=== PATIENT | female | born 2000 | race Caucasian/White ===

== ENCOUNTER → 2023-04-29 | Outpatient (CLI) | payer MEDICAID, SELFPAY ==
[2023-05-01 09:10] LABS: Chlamydia By Nucleic Acid AMP Negative (Negative); Gonococcus By Nucleic Acid AMP Negative (Negative)
[2023-05-04 18:25] LABS: HPV Reflexed? NOT INDICATED
== END | disposition home or self-care (01) ==
LOC: LABSPEC 11:19
PROVIDERS: Referring Provider Registered Nurse; Visit Provider Registered Nurse
DX: Z34.90 Encounter for supervision of normal pregnancy, unspecified, unspecified trimester (principal)
CPT/HCPCS: 87491; 87591; 88175; G0145

== ENCOUNTER → 2023-05-26 | Outpatient (CLI) | payer MEDICAID, SELFPAY ==
[2023-05-26 11:32] LABS: Absolute Lymphocyte Count 1.79 X10^3/uL (0.83-4.51); Absolute Neutrophil Count 10.8 X10^3/uL (2.0-7.7); Basophil# 0.07 X10^3/uL; Basophil% 0.5 % (0-1); Eosinophil# 0.31 X10^3/uL; Eosinophils% 2.2 % (0-5); Hemoglobin 14.3 g/dL (12.0-15.0); Lymphocyte # 1.79 X10^3/ul (0.83-4.51); Lymphocyte % 12.7 % (19-41); Mean Corpuscular Hgb 29.6 pg (27.0-32.0); Mean Platelet Vol. 8.7 fl (6.2-12.0); Monocyte# 1.07 X10^3/uL; Monocyte% 7.6 % (0-10); NRBC Flagged by Analyzer 0 % (0-5); Neutrophil # 10.78 X10^3/uL (2.7-7.7); Neutrophil % 76.6 % (47-70); Platelet Count 358 K/mm3 (150-450); RBC Distribution Width CV 12.3 % (11.6-14.6); RBC Distribution Width SD 38.8 fl (35.1-43.9); Red Blood Count 4.83 M/mm3 (4.2-5.4); White Blood Count 14.1 K/mm3 (4.4-11.0)
[2023-05-26 12:27] LABS: NATERA MAILED SPECIMEN
[2023-05-26 12:36] LABS: HIV - WCH Non-Reactive (Nonreactive); Hepatitis B Surface Antigen Non-Reactive (Nonreactive); Hepatitis C Antibody Non-Reactive (Nonreactive); Rubella IgG Reactive (Nonreactive); Syphilis Antibodies Non-reactive
== END | disposition home or self-care (01) ==
PROVIDERS: Referring Provider Registered Nurse; Visit Provider Registered Nurse
DX: Z34.81 Encounter for supervision of other normal pregnancy, first trimester (principal)
CPT/HCPCS: 36415; 85025; 86703; 86762; 86780; 86803; 86850; 86900; 86901; 87086; 87340

== ENCOUNTER → 2023-09-17 | Outpatient (CLI) | payer MEDICAID, SELFPAY ==
[2023-09-17 10:44] LABS: Absolute Lymphocyte Count 1.58 X10^3/uL (0.83-4.51); Absolute Neutrophil Count 11.5 X10^3/uL (2.0-7.7); Basophil# 0.02 X10^3/uL; Basophil% 0.1 % (0-1); Eosinophil# 0.11 X10^3/uL; Eosinophils% 0.8 % (0-5); Hematocrit 32.3 % (37-47); Hemoglobin 11.1 g/dL (12.0-15.0); Lymphocyte # 1.58 X10^3/ul (0.83-4.51); Lymphocyte % 11.1 % (19-41); Mean Corp Hgb Conc 34.4 g/dL (32-36); Mean Corpuscular Hgb 30.1 pg (27.0-32.0); Mean Corpuscular Volume 87.5 fL (81-99); Mean Platelet Vol. 8.9 fl (6.2-12.0); Monocyte# 0.86 X10^3/uL; NRBC Flagged by Analyzer 0 % (0-5); Neutrophil # 11.53 X10^3/uL (2.7-7.7); Neutrophil % 81.2 % (47-70); Platelet Count 302 K/mm3 (150-450); RBC Distribution Width CV 12.4 % (11.6-14.6); RBC Distribution Width SD 39.7 fl (35.1-43.9); Red Blood Count 3.69 M/mm3 (4.2-5.4); White Blood Count 14.2 K/mm3 (4.4-11.0)
[2023-09-17 11:01] LABS: Glucose Challenge Gest 1H 50g 119 mg/dL (70-140)
[2023-09-17 11:35] LABS: HIV - WCH Non-Reactive (Nonreactive); Syphilis Antibodies Non-reactive
== END | disposition home or self-care (01) ==
LOC: PAVLAB 10:13
PROVIDERS: Referring Provider Obstetrics & Gynecology; Visit Provider Obstetrics & Gynecology
DX: Z34.00 Encounter for supervision of normal first pregnancy, unspecified trimester (principal)
CPT/HCPCS: 36415; 82950; 85025; 86703; 86780

== ENCOUNTER → 2023-11-09 | Outpatient (CLI) | payer MEDICAID, SELFPAY ==
[2023-11-09 11:59] LABS: Protein, Urine (Random) 61.8 mg/dL (<11.9); Protein:Creat Ratio 722 mg/g CRE (0-200)
== END | disposition home or self-care (01) ==
PROVIDERS: Visit Provider Obstetrics & Gynecology
DX: Z34.02 Encounter for supervision of normal first pregnancy, second trimester (principal)
CPT/HCPCS: 82570; 84156

== ENCOUNTER → 2023-11-13 | Outpatient (CLI) | payer MEDICAID, SELFPAY ==
--- NOTE | 2023-11-13 11:39 | US_ITS ---
EXAM: US BIOPHYSICAL PROFILE WITHOUT NON-STRESS TESTING CLINICAL INDICATION: pre e TECHNIQUE: Real-time ultrasound of the maternal pelvis for biophysical profile evaluation with image documentation. COMPARISON: No relevant prior studies available. FINDINGS: BREATHING MOVEMENTS: Present. Score 2/2. GROSS BODY MOVEMENTS: Present. Score 2/2. TONE: Present. Score 2/2. QUALITATIVE AMNIOTIC FLUID VOLUME: Amniotic fluid index is 9.1 cm. FETUS: Single fetus. HEART RATE: cardiac rate is 152 bpm. PRESENTATION: Cephalic presentation. PLACENTA: Anterior placenta with grade 2 maturity change. US/Biophysical Prof W/O Non Stres IMPRESSION: No acute findings. Normal biophysical profile with score of 8/8. Electronically Signed: Deon Abdullahi MD at 16:54 EDT ,
== END | disposition home or self-care (01) ==
LOC: US 11:38
PROVIDERS: Referring Provider Obstetrics & Gynecology; Visit Provider Obstetrics & Gynecology
DX: Z34.02 Encounter for supervision of normal first pregnancy, second trimester (principal)
CPT/HCPCS: 76819

== ENCOUNTER → 2023-11-19 | Outpatient (CLI) | payer MEDICAID, SELFPAY ==
[2023-11-19 11:15] LABS: Absolute Lymphocyte Count 1.92 X10^3/uL (0.83-4.51); Basophil# 0.02 X10^3/uL; Basophil% 0.1 % (0-1); Eosinophil# 0.12 X10^3/uL; Eosinophils% 0.9 % (0-5); Hematocrit 32.4 % (37-47); Hemoglobin 10.5 g/dL (12.0-15.0); Lymphocyte # 1.92 X10^3/ul (0.83-4.51); Lymphocyte % 13.7 % (19-41); Mean Corp Hgb Conc 32.4 g/dL (32-36); Mean Corpuscular Hgb 26.7 pg (27.0-32.0); Mean Corpuscular Volume 82.4 fL (81-99); Mean Platelet Vol. 10.6 fl (6.2-12.0); Monocyte# 0.86 X10^3/uL; Monocyte% 6.1 % (0-10); NRBC Flagged by Analyzer 0 % (0-5); Neutrophil # 10.96 X10^3/uL (2.7-7.7); Neutrophil % 78.4 % (47-70); Platelet Count 281 K/mm3 (150-450); RBC Distribution Width SD 38.9 fl (35.1-43.9); Red Blood Count 3.93 M/mm3 (4.2-5.4)
[2023-11-19 11:30] LABS: ALB/GLOB Ratio 0.6 RATIO (0.9-2.4); AST(SGOT) 15 U/L (15-37); Alanine Aminotransfer ALT/SGPT 18 U/L (13-56); Albumin, Serum 2.5 g/dL (3.2-5.0); Alkaline Phosphatase 187 U/L (45-117); Anion Gap 7 (5-15); BUN 8 mg/dL (7-18); BUN/Creat Ratio 14.8 RATIO (10-20); Calcium,Total 8.6 mg/dL (8.5-10.1); Chloride 106 mmol/L (98-107); Creatinine, Serum 0.54 mg/dL (0.55-1.02); EST Glomerular Filtration Rate 150 mL/min (>60); Est Glom Filt Rate - Afr Amer 181 mL/min (>60); Globulin 4.3 g/dL (2.2-4.2); Glucose 88 mg/dL (74-106); Protein, Total 6.8 g/dL (6.4-8.2); Sodium Level 135 mmol/L (136-145)
[2023-11-19 13:46] LABS: Protein, Urine (Random) 657.4 mg/dL (<11.9); Protein:Creat Ratio 5259 mg/g CRE (0-200)
== END | disposition home or self-care (01) ==
PROVIDERS: Referring Provider Obstetrics & Gynecology; Visit Provider Obstetrics & Gynecology
DX: O12.13 Gestational proteinuria, third trimester (principal); Z3A.34 34 weeks gestation of pregnancy
CPT/HCPCS: 36415; 80053; 82570; 84156; 85025; 87086; 87088

== ENCOUNTER 2023-11-20 15:25 | Inpatient (IN) | payer MEDICAID, SELFPAY ==
[2023-11-20 15:35] VITALS: BMI 33.3
[2023-11-20] MEDS: Lactated Ringers 1,000 ML 50 ML IV (16:20)
[2023-11-20 16:27] LABS: Absolute Neutrophil Count 9.5 X10^3/uL (2.0-7.7); Basophil# 0.03 X10^3/uL; Basophil% 0.2 % (0-1); Eosinophil# 0.09 X10^3/uL; Eosinophils% 0.7 % (0-5); Hematocrit 32.7 % (37-47); Hemoglobin 10.8 g/dL (12.0-15.0); Lymphocyte % 14.6 % (19-41); Mean Corpuscular Hgb 27.1 pg (27.0-32.0); Mean Platelet Vol. 10.5 fl (6.2-12.0); Monocyte# 0.78 X10^3/uL; Monocyte% 6.3 % (0-10); NRBC Flagged by Analyzer 0 % (0-5); Neutrophil # 9.53 X10^3/uL (2.7-7.7); Neutrophil % 77.6 % (47-70); Platelet Count 296 K/mm3 (150-450); RBC Distribution Width SD 38.6 fl (35.1-43.9); Red Blood Count 3.99 M/mm3 (4.2-5.4); White Blood Count 12.3 K/mm3 (4.4-11.0)
[2023-11-20 16:32] VITALS: BP 139/87; PULSE 83; TEMP 36.6
[2023-11-20 16:57] LABS: AST(SGOT) 20 U/L (15-37); Alanine Aminotransfer ALT/SGPT 17 U/L (13-56); Creatinine, Serum 0.51 mg/dL (0.55-1.02); EST Glomerular Filtration Rate 161 mL/min (>60); Est Glom Filt Rate - Afr Amer 195 mL/min (>60); Estimated Creatinine Clearance 180.59 ml/min; Uric Acid 4.4 mg/dL (2.6-6.0)
[2023-11-20 17:03] LABS: Protein, Urine (Random) 1081.1 mg/dL (<11.9); Protein:Creat Ratio 5573 mg/g CRE (0-200)
[2023-11-20 17:21] LABS: Syphilis Antibodies Non-reactive
--- NOTE | 2023-11-20 17:54 | HP.PCM.OB_ITS ---
HPI - General General Date of Admission: 11/20/23 HPI Narrative JEANNIE DANIELS, is a 23 F who presents with preeclampsia with severe features- elevated bps and headaches at home, proteinuria over 5000mg. she denies any vb lof admits good fm no regular ctx. bps 150/100s at home. 2cm upon admission Maternal Data Information ROSA MARIA Calculator Estimated Delivery Date Method Current WG Current Estimate 12/19/23 Ultrasound #1 35w 6d Other Estimates 12/05/23 LMP (Certain) 37w 6d PFSH PFS Medical History (Updated 11/20/23 @ 17:[address] 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 current occupational exposures/hazards: No pets and animals: Yes pets and animals: other details: bearded alexon history of recent travel: No sexually active: Yes Smoking Status: Current every day smoker tobacco type: e-cigarettes Tobacco: How many years used: 7 Electronic Cigarette Use: with nicotine quit status: considering quitting alcohol intake: never substance use type: does not use diet: lactose free well-balanced diet: daily or most days caffeine: No eating out: 1-3 times/week during the past year weight has: remained stable what type of physical activity do you participate in: none maureen/denominational: None seatbelt use: always do you feel safe at home: Yes additional social history: BF Corey- Medical Record Retrieval Specialist History 1 Elective abortions Hx Para 0 Spontaneous abortions Hx # Term Pregnancies Ectopic pregnancies Hx # Pregnancies Multiple births # of living children Visit Details Expected Delivery Route/Plan Labor Preferences- CB/BF classes: declined labor support person: jody kaur- Olga Lidia labor intervention preferences: [] pain management options preferred: [] cut cord/dad catch: [] : [] PP control planned: [] discussed possible routes of delivery and associated risks: [] special requests: [] Plans Covid status: [] Flu vaccine: declined Tdap vaccine: Rhogam: [] LARC form signed: [] Problem list reviewed and updated with the most current plan of care details and appropriate orders placed. Relevant counseling for the gestational age provided. Continue routine care and follow up unless otherwise noted in visit notes/problem list details OB Flowsheet Initial Weight: Not Recorded Date -?-?-?-?-?-?-?-?-?-?-?-?- EGA Weight BP Urine Prot -?-?-?-?-?-?-?-?-?-?-?-?- Glucose FHR FuHt Pres Dilation -?-?-?-?-?-?-?-?-?-?-?-?- Effaced St Visit Note 04/29/23 -?-?-?-?-?-?-?-?-?-?-?-?- 6w 4d 118 lb 6 oz 125/74 -?-?-?-?-?-?-?-?-?-?-?-?- 133 -?-?-?-?-?-?-?-?-?-?-?-?- CRL 8mm. LMP not con with ROSA MARIA. LCCRL 8mm. LMP not con with ROSA MARIA. changed to 12/19/2023. accepts carrier and genetic screening. tobacco cessation encouraged. 05/26/23 -?-?-?-?-?-?-?-?-?-?-?-?- 10w 3d 120 lb 4 oz 114/78 -?-?-?-?-?-?-?-?-?-?-?-?- -?-?-?-?-?-?-?-?-?-?-?-?- kw- no vb/augie desouza. [employer] helping with N/V. FHT visualized on handheld US today. no concerns 06/24/23 -?-?-?-?-?-?-?-?-?-?-?-?- 14w 4d 124 lb 4 oz 110/62 Nega tive -?--?-?-?-?-?-?-?-?-?-?-?- Negative 145 -?-?-?-?-?-?-?-?-?-?-?-?- MH-NO VB. doing well. Reviewed genetic screen for positive short allele Fragile X. MFM US ordered 07/24/23 -?-?-?-?-?-?-?-?-?-?-?-?- 18w 6d 141 lb 2 oz 127/80 -?-?-?-?-?-?-?-?-?-?-?-?- 155 -?-?-?-?-?-?-?-?-?-?-?-?- KW- anatomy us y esterday. repeat US at 28 weeks for low placenta. no vb/cramping. good fm. 08/20/23 -?-?-?-?-?-?-?-?-?-?-?-?- 22w 5d 153 lb 111/72 -?-?-?-?-?-?-?-?-?-?-?-?- 145 -?-?-?-?-?-?-?-?-?-?-?-?- SM- no vb lof go od fm no regular ctx discussed pain in feet 09/17/23 -?-?-?-?-?-?-?-?-?-?-?-?- 26w 5d 166 lb 114/73 Negative -?-?-?-?-?-?-?-?-?-?-?-?- Negative 150 27 -?-?-?-?-?-?-?-?-?-?-?-?- SM- no vb lof go od fm no regular ctx nl cbc gct 10/15/23 -?-?-?-?-?-?-?-?-?-?-?-?- 30w 5d 173 lb 120/79 Negative -?-?-?-?-?-?-?-?-?-?-?-?- Negative 140 32 -?-?-?-?-?-?-?-?-?-?-?-?- KW- no vb/lof/ct x. good fm. KW- no vb/lof/ctx. good fm. Tdap and LARC today 10/26/23 -?-?-?-?-?-?-?-?-?-?-?-?- 32w 2d 179 lb 2 oz 120/81 -?-?-?-?-?-?-?-?-?-?-?-?- 145 33 -?-?-?-?-?-?-?-?-?-?-?-?- KW- no vb/lof/ct x. good fm. FMLA papers to triage. 11/09/23 -?-?-?-?-?-?-?-?-?-?-?-?- 34w 2d 183 lb 4 oz 120/86 1+ -?-?-?-?-?-?-?-?-?-?-?-?- Negative 145 34 1 -?-?-?-?-?-?-?-?-?-?-?-?- SM- no vb lof go od fm no regular ctx but co some rpessure and discharge- 11/19/23 -?-?-?-?-?-?-?-?-?-?-?-?- 35w 5d 191 lb 138/84 3+ -?-?-?-?-?-?-?-?-?-?-?-?- Negative 130 -?-?-?-?-?-?-?-?-?-?-?-?- SM- reviewed pre cautions no vb lof irregular ctx NST FHR Rate Baby A Baseline: 140 Variability:: Moderate Accelerations:: 15 x 15 Decelerations:: None NST Reactive:: Yes FHR Category:: Category I Uterine Activity:: q3-5 ROS Constitutional Constitutional: Reports systems reviewed and no addt'l complaints, except as documented ENT HEENT: Reports systems reviewed and no addt'l complaints, except as documented Cardiovascular Cardiovascular: Reports systems reviewed and no addt'l complaints, except as documented Respiratory/Chest Respiratory/Chest: Reports systems reviewed and no addt'l complaints, except as documented Gastrointestinal Gastrointestinal: Reports systems reviewed and no addt'l complaints, except as documented and nausea; Denies abdominal pain Genitourinary Genitourinary: Reports systems reviewed and no addt'l complaints, except as documented, contractions Details: present and frequency (regular ) and movement Details: present Musculoskeletal Musculoskeletal: Reports systems reviewed and no addt'l complaints, except as documented Integumentary Integumentary: Reports as per HPI Neurologic Neurologic: Reports systems reviewed and no addt'l complaints, except as documented Endocrine Endocrinology: Reports systems reviewed and no addt'l complaints, except as documented Vital Signs Vital Signs Vital Signs: 11/20/23 16:32 11/20/23 16:32 11/20/23 16:32 Temperature Temperature Source Temporal Pulse Rate 83 Blood Pressure 139/87 H BP Systolic 139 BP Diastolic 87 11/20/23 16:32 Temperature 97.9 F Temperature Source Pulse Rate Blood Pressure BP Systolic BP Diastolic Weight Weight: 188 lb 0.869 oz Body Mass Index (BMI) 33.3 Physical Exam Const alert, oriented x3 and healthy appearing Constitutional Narrative: uncomfortable with contractions HEENT normocephalic and moist oral mucous membranes Head and Scalp: atraumatic Neck full ROM, no lymphadenopathy, supple and thyroid normal General: trachea midline Thyroid: thyroid normal Lymph Lymphatic: no lymphadenopathy noted Chest inspection of chest normal Resp normal respiratory effort Cardio regular rate GI normal to inspection, nondistended, normoactive bowel sounds, soft to palpation and non-tender Inspection: gravid external exam normal Bimanual Exam - Vag & Uterus: uterus non-tender Manual OB Exam: estimated gestational size appropriate, presentation cephalic, dilated, effaced and station Extremity normal to inspection General Extremity: Negative for edema Skin no rashes or lesions noted Neuro deep tendon reflexes 2+ bilaterally Motor Exam: strength 5/5 throughout and clonus absent Psych mental status grossly normal Labs Labs Labs: Blood Type A POSITIVE Antibody Screen NEGATIVE Hct 32.7 % (37-47) L Hgb 10.8 g/dL (12.0-15.0) L Syphilis Total Ab Non-reactive Rubella IgG Antibody Reactive (Nonreactive) Hep Bs Antigen Non-Reactive (Nonreactive) Hepatitis C Antibody Non-Reactive (Nonreactive) Chlamydia DNA ([facility]) Negative (Negative) N.gonorrhoeae DNA ([facility]) Negative (Negative) HIV 1&2 Antibody Non-Reactive (Nonreactive) Glucose 1 Hr 50 gm 119 mg/dL (70-140) Group B Strep DNA Negative (Negative) Assessment & Plan (1) Preeclampsia, severe: (2) Proteinuria affecting : COMMENT: home bp monitoring, weekly nsts and pree labs, growth US ordered, reviewed pree precautions. urine culture ordered also. (3) Acid reflux: (4) Abnormal chromosomal and genetic finding on screening mother: COMMENT: intermediate allele size for fragile X which does not affect current or patient but could expand to affect future generations. (5) Lactose intolerance: (6) Vaping nicotine dependence, non-tobacco product: COMMENT: considering quitting, has decreased frequency of use (7) Supervision of normal first : QUALIFIERS: Trimester: second trimester Qualified Code(s): Z34.02 - Encounter for supervision of normal first , second trimester COMMENT: [id number]. ROSA MARIA 12/19/23 girl Ny Nicole (8) : QUALIFIERS: Weeks of gestation: 34 weeks Qualified Code(s): Z3A.34 - 34 weeks gestation of COMMENT: NIPT low risk, carrier testing reviewed. ntd screen declined. anatomy reviewed.
[2023-11-20] MEDS: Acetaminophen 500 MG Tablet PO (18:32)
[2023-11-20] MEDS: Betamethasone/Betamethasone 30 MG/5 ML Vial 12 MG IM (18:33)
[2023-11-20 19:00] LABS: Amphetamine Urine VISTA NEGATIVE (<1000 ng/mL); Barbiturate Urine VISTA NEGATIVE (< 200 ng/mL); Benzodiazepine Urine VISTA NEGATIVE (< 200 ng/mL); Cocaine Urine VISTA NEGATIVE (< 300 ng/mL); Ecstacy Urine VISTA NEGATIVE (< 500 ng/mL); Methadone Urine VISTA NEGATIVE (< 300 ng/mL); PCP Urine VISTA NEGATIVE (< 25 ng/mL); THC Urine VISTA POSITIVE (< 50 ng/mL); Vista UDS pH Range 6
[2023-11-20] MEDS: miSOPROStol 25 MCG TABLET VAGINAL ×2 (19:13→23:21)
[2023-11-20 19:17] VITALS: BP 141/87; PULSE 78
[2023-11-20 19:18] VITALS: RESP 16; TEMP 36.9
[2023-11-20 19:34] LABS: Group B Strep DNA By PCR Negative (Negative); Internal Control PASS; Probe Check PASS; Specimen Processing Control PASS
[2023-11-20 20:00] VITALS: PULSE 88; O2SAT 97
[2023-11-20 23:14] VITALS: BP 136/87; PULSE 85
[2023-11-20 23:15] VITALS: PULSE 85; RESP 16; TEMP 36.6; O2SAT 98
[2023-11-21] VITALS (70 sets, daily range): BP systolic 119–166; BP diastolic 62–119; PULSE 78–165; RESP 16; TEMP 36.2–37.1; O2SAT 94–100
[2023-11-21] MEDS: Lactated Ringers 1,000 ML 999 ML IV (02:45)
[2023-11-21] MEDS: fentaNYL-bupivacaine (epidural) 100 ML BAG EPIDURAL (03:45)
[2023-11-21 06:17] LABS: Hematocrit 32.7 % (37-47); Hemoglobin 10.7 g/dL (12.0-15.0); Mean Corp Hgb Conc 32.7 g/dL (32-36); Mean Corpuscular Hgb 26.9 pg (27.0-32.0); Mean Corpuscular Volume 82.2 fL (81-99); Mean Platelet Vol. 10.2 fl (6.2-12.0); Platelet Count 313 K/mm3 (150-450); RBC Distribution Width CV 12.9 % (11.6-14.6); RBC Distribution Width SD 38.2 fl (35.1-43.9); Red Blood Count 3.98 M/mm3 (4.2-5.4)
[2023-11-21 06:43] LABS: ALB/GLOB Ratio 0.6 RATIO (0.9-2.4); AST(SGOT) 16 U/L (15-37); Alanine Aminotransfer ALT/SGPT 17 U/L (13-56); Albumin, Serum 2.5 g/dL (3.2-5.0); Alkaline Phosphatase 189 U/L (45-117); Anion Gap 9 (5-15); BUN 6 mg/dL (7-18); BUN/Creat Ratio 10.3 RATIO (10-20); Calcium,Total 9.2 mg/dL (8.5-10.1); Chloride 105 mmol/L (98-107); Creatinine, Serum 0.58 mg/dL (0.55-1.02); EST Glomerular Filtration Rate 138 mL/min (>60); Est Glom Filt Rate - Afr Amer 166 mL/min (>60); Globulin 4.2 g/dL (2.2-4.2); Glucose 113 mg/dL (74-106); Potassium 3.8 mmol/L (3.5-5.1); Protein, Total 6.7 g/dL (6.4-8.2); Sodium Level 134 mmol/L (136-145)
[2023-11-21] MEDS: Lactated Ringers 1,000 ML 200 ML IV (06:43)
--- NOTE | 2023-11-21 06:45 | PCM.PN.BLA ---
Progress Note arom CLEAR fliud, had some increased bleeding overnight but making cervical change now 4-5 80 -2.
[2023-11-21] MEDS: LACTATED RINGERS 500 ML 999 ML IV (07:28)
--- NOTE | 2023-11-21 08:44 | EX.PCM.OBRPT ---
Assessment & Plan (1) Preeclampsia, severe: COMMENT: admit and IOL. monitor bps to start magnesium. monitor serial labs (2) Proteinuria affecting : COMMENT: home bp monitoring, weekly nsts and pree labs, growth US ordered, reviewed pree precautions. urine culture ordered also. (3) Abnormal chromosomal and genetic finding on screening mother: COMMENT: intermediate allele size for fragile X which does not affect current or patient but could expand to affect future generations. (4) Acid reflux: (5) Lactose intolerance: (6) Vaping nicotine dependence, non-tobacco product: COMMENT: considering quitting, has decreased frequency of use (7) Supervision of normal first : QUALIFIERS: Trimester: second trimester Qualified Code(s): Z34.02 - Encounter for supervision of normal first , second trimester COMMENT: [id number]. ROSA MARIA 12/19/23 girl Ny Nicole (8) : QUALIFIERS: Weeks of gestation: 34 weeks Qualified Code(s): Z3A.34 - 34 weeks gestation of COMMENT: NIPT low risk, carrier testing reviewed. ntd screen declined. anatomy reviewed. (9) Vaginal delivery: COMMENT: SM IOL severe preeclampsia 36 girl Alejandra (10) Placental abruption in third trimester: COMMENT: marginal at delivery recommend apl panel at visit Maternal Data Information ROSA MARIA Calculator Estimated Delivery Date Method Current WG Current Estimate 12/19/23 Ultrasound #1 36w 0d Other Estimates 12/05/23 LMP (Certain) 38w 0d Vaginal Delivery Operative Information Pre-Operative Diagnosis: see a/p diagnoses Post-Operative Diagnosis: same Surgery / Procedure Performed: Spontaneous Vaginal Delivery Type of Anesthesia: Epidural Special Medications: none Estimated Blood Loss: 200 Fluids Replaced: crystalloid Findings Description of Procedure: Patient began pushing and delivered the head in the SHAMIKA presentation. The head was delivered atraumatically nc x 1 delivered through. The anterior and posterior shoulders delivered without complication followed by the rest of the and the infant was placed on the maternal abdomen. Delayed cord clamping was employed for approximately 60 seconds. Cord was clamped and cut and gentle traction was applied to the cord and the placenta delivered spontaneously immediately following it was noted to be intact with three-vessel cord. The perineum and vagina were inspected and noted to have no laceration. EBL was 500 cc with mild atony treated with massage and cytotec and hemabate, marginal placental abruption seen at edge of placenta and port wine fluid seen at delivery of baby.. Patient and tolerated delivery well. Amniotic Fluid Description: Bloody Placental Delivery Description: Spontaneous Placenta Disposition: [facility] Cord Vessel Description: 3 Vessels Cord Entanglement: Around neck x 1, loose Delayed Cord Clamping: Yes Post Vaginal Delivery Medications Given After Delivery: - (Pitocin) Episiotomy Description: None Complication Complications: None Procedures Urinary/Genital [id number]: [id number] Vaginal Delivery+PP Care([facility])
--- NOTE | 2023-11-21 08:47 | DCINST_ITS ---
Discharge Instructions Diet Discharge Diet: No restrictions Activity Discharge Activity: Return to Normal Activity, May Not Drive (while taking narcotic pain medications.) and May Shower May resume sexual activity in: 4-6 weeks Dressing / Incision Call your doctor if your incision/area has: Continuous Slow Oozing, Sudden Increased Bleeding, Increased Pain/ Swelling, Increased Redness and Foul Smelling Discharge Follow Up Care Please Follow Up With: Arelis Hitchcock MD When: Call [phone] to make an appointment with your doctor in 6 weeks. If you had elevated blood pressure or 4th degree laceration, you will need to be seen in 2 weeks. Test Results: Test results from this visit will be discussed in further detail at your follow- up appointment, if applicable. Discharge Plan Admission Admit Date/Time: 11/20/23 15:25 Attending Provider: Arelis Hitchcock Primary Care Provider: Care Physician,Mildred Primary Discharge Orders/Prescriptions Prescriptions: No Action PNV-DHA 27 mg iron-1 mg -300 mg capsule 1 cap PO DAILY Referrals / Follow Up: Care Physician,No Primary [Primary Care Provider] - Disposition Disposition (needs filled in before D/C Order can be placed): Home, Self Care
[2023-11-21] MEDS: Oxytocin 15 Units/NS 250ml 15 UNITS/250 ML IV.SOLN 334 UNITS IV (09:15)
[2023-11-21] MEDS: miSOPROStol 200 MCG Tablet 1000 MCG RC (09:16)
[2023-11-21] MEDS: Carboprost Tromethamine 250 MCG/ML Ampul IM (09:17)
[2023-11-21] MEDS: Ondansetron 4 MG/2 ML Vial IV (10:01)
[2023-11-21] MEDS: Oxytocin 15 Units/NS 250ml 15 UNITS/250 ML IV.SOLN 83 UNITS IV (10:27)
[2023-11-21] MEDS: Loperamide 2 MG Capsule PO (11:50)
[2023-11-21] MEDS: Lactated Ringers 500 ML 999 ML IV (11:55)
[2023-11-21 12:12] LABS: Absolute Lymphocyte Count 2.27 X10^3/uL (0.83-4.51); Basophil# 0.08 X10^3/uL; Basophil% 0.2 % (0-1); Eosinophil# 0.32 X10^3/uL; Eosinophils% 0.9 % (0-5); Hematocrit 30.7 % (37-47); Hemoglobin 10.2 g/dL (12.0-15.0); Lymphocyte # 2.27 X10^3/ul (0.83-4.51); Lymphocyte % 6.2 % (19-41); Mean Corp Hgb Conc 33.2 g/dL (32-36); Mean Corpuscular Hgb 27.3 pg (27.0-32.0); Mean Corpuscular Volume 82.3 fL (81-99); Mean Platelet Vol. 10.7 fl (6.2-12.0); Monocyte# 2.38 X10^3/uL; Monocyte% 6.5 % (0-10); NRBC Flagged by Analyzer 0 % (0-5); Neutrophil % 84.9 % (47-70); POSITIVE COUNT YES; POSITIVE DIFFERENTIAL YES; Platelet Count 413 K/mm3 (150-450); RBC Distribution Width CV 13.2 % (11.6-14.6); Red Blood Count 3.73 M/mm3 (4.2-5.4)
[2023-11-21 12:34] LABS: White Blood Count 36.5 K/mm3 (4.4-11.0)
[2023-11-21 12:35] LABS: Differential Indicated SCAN CRITERIA MET
[2023-11-21 12:55] LABS: Differential Comment SCANNED
[2023-11-21] MEDS: Gentamicin IV 260 MG in Dextrose 5%-Water (50mL Bag) 50 ML 100 MG IVPB (13:09)
[2023-11-21] MEDS: Clindamycin 900 MG/50 ML BAG 75 MG IV ×2 (14:30→22:29)
--- NOTE | 2023-11-21 15:39 | CASEMGMT ---
Social Work Assessment Labor and Delivery Unit Patient Address: [address] [place] [address] , [address], [place] [address] Phone number: [phone] Date of Referral: 11/21/2023 Time of Referral: 1024 Referred By: Dr. Arelis Hitchcock Date of Intervention: 11/21/2023 Time of Intervention: Approximately 1330 Reason for Referral: Resources History obtained from: Medical records and mother of baby (MOB) Florence Li; father of baby (FOB) Corey Bruno and MOB's mother Olga Lidia Portillo present for part of conversation Household composition: MOB and FOB live together in an apartment. Denies any safety concerns or general concerns about the environment. Patient's parent/guardian status: JESSICA is a 23-year-old single female involved with the FOB Corey Bruno for the last 1 year. is the first child for both parents. Baby girl named Ny Bruno, born 11/21/[birth year]23. During private conversation with MOB, MOB denied any type of domestic violence or safety concerns in this relationship. Medical History: JESSICA is 1, para 0 now 1 after delivering Ny. care good starting at 6 weeks gestation. MOB developed preeclampsia and per medical record had a marginal placental abruption. Infant delivered at 36 weeks gestation weighing 2875 g. Apgars 8 and 9 at 1 and 5 minutes of life respectively. Educational Status: MOB denies any learning or comprehension issues. Financial Status: JESSICA Works at [employer] in the FOB also works at [employer] of [employer]. FOB is a diesel pile hammer operator. No reported concerns. JESSICA is on [facility] community plan Medicaid. Supplies: MOB and FOB reported to have the necessary supplies for the baby including a car seat, safe sleep space in the form of bassinet and a pack and play. No concerns reported about diapers or clothing. MOB plans to provide breastmilk as well as to bottlefeed. Plans to utilize WIC for formula. Childcare/Caregiver(s): MOB and FOB will be primary caregivers. There is a daycare already lined up and the MOB's mother will also be in assist as needed. Transportation: MOB and FOB reported to have reliable transportation. Programs/Agencies Involved: Job and family services for medical. JESSICA reports she has looked into WIC and plans to apply for this for formula. No other patient seen our program involvement reported. Declined referrals to the [facility] nurse visit program and help me grow. Children Services/Legal Issues: No reported history Behavioral Health Issues: Mental Health History: MOB denies any type of mental health history, no depression, no anxiety or exacerbation of such during . Denies any history of suicidal ideations, plans or intent or attempt. Substance Use History: MOB admits to history of marijuana usage. Medical record indicates usage over the last couple of years and last use was within the last 2 weeks. MOB reports to this verse writer that growing up the MOB was a tomboy and did things such as 4 wheeling. MOB reports had to stop some of these activities due to , and then might started to feel more pain. MOB reports would use marijuana at nighttime before bed, to help the MOB sleep. MOB denies any alcohol use in denies any other substance use history. Medical record does indicate MOB does smoke tobacco. Family History: MOB's mother denies any history of depression for self or any other female in the family. No other mental health history reported. MOB did disclose that FOB will sometimes use marijuana. Drug Screens: Maternal drug screen positive for marijuana on 11/20/2023. Infant's urine and meconium testing pending. RN reports did urinate at delivery. Family/Social Stressors: No reported family or social stressors. MOB reports that the main concern she had was that the infant would be taken away due to marijuana usage. Support Systems: MOB and FOB reported to have a good support system between themselves and family. MOB's mother is close by to help when needed. FOB will be taking 2 weeks off of work to help with transition home. MOB's mother has the option of taking up to 5 weeks off of work as needed to help Depression/Shaken Baby/Safe Sleeping: Information provided on safe sleeping, shaken baby, and mood and anxiety disorders. ASSESSMENT: Met with MOB, FOB and MOB's mom in room, introducing to self and social work role. Conducted assessment with others present, though did ask visitors to leave to allow for depression screening. Family left willingly and without issue. This verse writer did verbally review [place] depression screening questions and MOB was negative on all answers. Denies any type of chronic or past concerns with depression or anxiety. This verse writer also addressed privately MOB's history of THC use. MOB reports that both the FOB and MOB's mom is aware of this history. MOB answered questions and reports has been worried about losing custody of the baby due to marijuana. Updated MOB that substance use in does warrant referral to children services, but that there is a chance children services may not even follow-up. MOB expressed understanding and appreciation for this update. MOB reports to be happy to be a mother, that this has been her desire for a long time to parent a baby. MOB reports to feel she is in a good relationship with FOB, who MOB feels is supportive. MOB reports that she has been considering the appropriate method to feed the baby, as he is aware that using any type of substance and then providing breastmilk to the baby is not recommended. MOB accepted resources on perineal mood and anxiety disorders, safe sleeping, shaken baby, healthy girl and nurse visit program. General resource list for [facility] also provided. MOB declined any actual referrals to help make her out for the nurse visit program. MOB reports intent to speak with [employer] should symptoms of mood and anxiety disorder surface. Safe Plan of Care for infant related to substance use: MOB reports that if there is any future marijuana use by herself or the FOB all use would be outside. Marijuana would be kept in a locked box outside of the house. Parents would take turns using the substance. This verse writer encouraged MOB that there should always be once sober. To be caring for the baby. MOB expressed understanding and intent to adhere to this recommendation. MOB is also aware of recommendations not to provide breastmilk after using. MOB does report plan to speak with department further on this topic. PLAN: MOB and infant will discharge home when ready. General resource packet of social service agencies for [facility] provided, including parent support and counseling. Information on safe sleeping, shaken baby prevention, mood and anxiety disorders, help me grow, and nurse visit program also provided to MOB. Social work remains involved should any additional concerns arise during admission. -SILVIA Lopez, TUAN *This note was generated with Eximiaation software. It may contain incorrect words, spelling, and punctuation that were not noted in review of the chart prior to signing*
[2023-11-22 04:50] VITALS: BP 136/88; PULSE 94; RESP 16; TEMP 36.1; O2SAT 99
[2023-11-22] MEDS: Clindamycin 900 MG/50 ML BAG 75 MG IV (06:34)
[2023-11-22 06:45] LABS: ALB/GLOB Ratio 0.6 RATIO (0.9-2.4); AST(SGOT) 21 U/L (15-37); Alanine Aminotransfer ALT/SGPT 22 U/L (13-56); Albumin, Serum 2.5 g/dL (3.2-5.0); Alkaline Phosphatase 140 U/L (45-117); Anion Gap 7 (5-15); BUN 7 mg/dL (7-18); BUN/Creat Ratio 11.3 RATIO (10-20); Calcium,Total 8.9 mg/dL (8.5-10.1); Chloride 106 mmol/L (98-107); Creatinine, Serum 0.62 mg/dL (0.55-1.02); EST Glomerular Filtration Rate 128 mL/min (>60); Est Glom Filt Rate - Afr Amer 155 mL/min (>60); Estimated Creatinine Clearance 148.55 ml/min; Globulin 3.9 g/dL (2.2-4.2); Glucose 91 mg/dL (74-106); Potassium 3.8 mmol/L (3.5-5.1); Protein, Total 6.4 g/dL (6.4-8.2); Sodium Level 137 mmol/L (136-145)
[2023-11-22 08:00] VITALS: BP 132/92; PULSE 96; RESP 17; TEMP 36.1
--- NOTE | 2023-11-22 08:28 | PN.OBGYN_ITS ---
Subjective Subjective Patient doing well without complaints. Tolerating PO. Ambulating and voiding without difficulty. feeding well. Denies chest pain, shortness of breath, calf pain/swelling, fevers, chills, lightheadedness. Objective Data Objective Data Vital Signs: Vital Signs Temp Pulse Resp BP Pulse Ox O2 Del Method 97.0 F L 94 16 136/88 H 99 Room Air 11/22/23 04:50 11/22/23 04:50 11/22/23 04:50 11/22/23 04:50 11/22/23 04:50 11/22/23 04:50 Oxygen Delivery Method Room Air Weight: 188 lb 0.869 oz Body Mass Index (BMI) 33.3 Intake & Output: Intake and Output for Last 24 Hours 11/20/23 11/21/23 11/22/23 23:59 23:59 23:59 Intake Total 4129.50 / 4129.50 50 / 50 Output Total 2200 / 2200 Balance 1929.50 / 1929.50 50 / 50 Lab / Micro Data 11/21/23 11:50 11/22/23 06:05 Labs: Laboratory Results - last 24 hr 11/21/23 11:50: WBC 36.5 H*, RBC 3.73 L, Hgb 10.2 L, Hct 30.7 L, MCV 82.3, MCH 27.3, MCHC 33.2, RDW Std Deviation 39.0, RDW Coeff of Justin 13.2, Plt Count 413, MPV 10.7, Immature Gran % (Auto) 1.300 H, Neut % (Auto) 84.9 H, Lymph % (Auto) 6.2 L, [place] % (Auto) 6.5, Eos % (Auto) 0.9, Baso % (Auto) 0.2, Absolute Neuts (auto) 31.0 H, Absolute Lymphs (auto) 2.27, Nucleated RBC % 0, Differential Comment SCANNED, Diff Path Review October11/22/23 06:05: Sodium 137, Potassium 3.8, Chloride 106, Carbon Dioxide 24.0, Anion Gap 7, BUN 7, Creatinine 0.62, Estim Creat Clear Calc 148.55, Est GFR (MDRD) Af Amer 155, Est GFR (MDRD) Non-Af 128, BUN/Creatinine Ratio 11.3, Glucose 91, Calcium 8.9, Total Bilirubin 0.20, AST 21, ALT 22, Alkaline Phosphatase 140 H, Total Protein 6.4, Albumin 2.5 L, Globulin 3.9, A lbumin/Globulin Ratio 0.6 L ROS Constitutional Constitutional: Reports systems reviewed and no addt'l complaints, except as documented Cardiovascular Cardiovascular: Reports systems reviewed and no addt'l complaints, except as documented Respiratory/Chest Respiratory/Chest: Reports systems reviewed and no addt'l complaints, except as documented Gastrointestinal Gastrointestinal: Reports systems reviewed and no addt'l complaints, except as documented Physical Exam Const alert, oriented x3 and no apparent distress HEENT Head and Scalp: atraumatic Resp normal respiratory effort GI soft to palpation and non-tender Bimanual Exam - Vag & Uterus: uterus non-tender Uterus Palpation: uterus fundus firm (below Umbilicus) Assessment & Plan (1) Placental abruption in third trimester: COMMENT: marginal at delivery recommend apl panel at visit (2) Vaginal delivery: COMMENT: SM IOL severe preeclampsia 38 girl Alejandra (3) Preeclampsia, severe: COMMENT: admit and IOL. monitor bps to start magnesium. monitor serial labs PLAN: Plan s/p PPD # 1 1. routine post delivery care 2. breast feeding- support given 3. rh positive 4. rubella immune elevated WBC count- s/p 24 ours antibiotics, repeat this am. cmp and bps stable
[2023-11-22 08:48] LABS: Absolute Lymphocyte Count 2.56 X10^3/uL (0.83-4.51); Absolute Neutrophil Count 12.3 X10^3/uL (2.0-7.7); Basophil# 0.02 X10^3/uL; Basophil% 0.1 % (0-1); Eosinophil# 0.04 X10^3/uL; Eosinophils% 0.2 % (0-5); Hematocrit 26.8 % (37-47); Hemoglobin 8.8 g/dL (12.0-15.0); Lymphocyte # 2.56 X10^3/ul (0.83-4.51); Lymphocyte % 15.8 % (19-41); Mean Corp Hgb Conc 32.8 g/dL (32-36); Mean Corpuscular Hgb 27.4 pg (27.0-32.0); Mean Corpuscular Volume 83.5 fL (81-99); Monocyte# 1.17 X10^3/uL; Monocyte% 7.2 % (0-10); NRBC Flagged by Analyzer 0 % (0-5); Neutrophil # 12.27 X10^3/uL (2.7-7.7); Neutrophil % 75.8 % (47-70); Platelet Count 297 K/mm3 (150-450); RBC Distribution Width CV 13.4 % (11.6-14.6); RBC Distribution Width SD 40.5 fl (35.1-43.9); Red Blood Count 3.21 M/mm3 (4.2-5.4); White Blood Count 16.2 K/mm3 (4.4-11.0)
[2023-11-22 16:20] VITALS: BP 147/81; PULSE 107; RESP 17; TEMP 36.3
[2023-11-22 18:03] VITALS: BP 150/88; PULSE 103
[2023-11-22 18:15] VITALS: BP 143/81; PULSE 95
[2023-11-22] MEDS: NIFEdipine 30 MG Tablet PO (18:50)
[2023-11-23 11:07] LABS: Pathologist Review Reviewed
--- NOTE | 2023-11-24 10:39 | CASEMGMT ---
Social Work Called [facility] and spoke with Brooke Machuca at [phone] regarding substance exposed infant: Maternal drug screen positive at delivery, first urine missed on infant, negative urine toxicology but pending meconium.? Brief maternal and infant history provided.? ?At this time referral will be screened out, however if meconium drug screen results do show positivity children services request to be notified. Plan: Monitor for meconium drug screen results. Mother of baby and infant have been discharged home. -ALONA Lopez, MANAGER INTERNET *This note was generated with [employer] software. It may contain incorrect words, spelling, and punctuation that were not noted in review of the chart prior to signing*
== END 2023-11-22 19:05 | disposition home or self-care (01) | DRG 560 ==
PROVIDERS: Admitting Provider Obstetrics & Gynecology; Visit Provider Obstetrics & Gynecology
DX: O14.14 Severe pre-eclampsia complicating childbirth (principal); Z37.0 Single live birth; O45.8X3 Other premature separation of placenta, third trimester; F17.290 Nicotine dependence, other tobacco product, uncomplicated; O62.2 Other uterine inertia; O99.334 Smoking (tobacco) complicating childbirth; O69.81X0 Labor and delivery complicated by cord around neck, without compression, not applicable or unspecified; Z3A.36 36 weeks gestation of pregnancy
CPT/HCPCS: 36415; 59025; 59050; 80053; 80307; 82565; 82570; 84156; 84450; 84460; 84550; 85025; 85027; 86780; 86850; 86900; 86901; 87081; 87086; 87088; 87653; 99221; J7120; G0378; J0702; J2405

== ENCOUNTER → 2023-12-03 | Outpatient (CLI) | payer MEDICAID, SELFPAY ==
[2023-12-03 14:24] LABS: Absolute Lymphocyte Count 1.92 X10^3/uL (0.83-4.51); Absolute Neutrophil Count 8.4 X10^3/uL (2.0-7.7); Basophil# 0.04 X10^3/uL; Basophil% 0.4 % (0-1); Eosinophil# 0.15 X10^3/uL; Eosinophils% 1.3 % (0-5); Hematocrit 33.1 % (37-47); Hemoglobin 10.7 g/dL (12.0-15.0); Lymphocyte # 1.92 X10^3/ul (0.83-4.51); Mean Corp Hgb Conc 32.3 g/dL (32-36); Mean Corpuscular Hgb 26.7 pg (27.0-32.0); Mean Corpuscular Volume 82.5 fL (81-99); Mean Platelet Vol. 8.5 fl (6.2-12.0); Monocyte# 0.75 X10^3/uL; Monocyte% 6.6 % (0-10); NRBC Flagged by Analyzer 0 % (0-5); Neutrophil # 8.39 X10^3/uL (2.7-7.7); Neutrophil % 74.3 % (47-70); Platelet Count 541 K/mm3 (150-450); RBC Distribution Width CV 13.4 % (11.6-14.6); RBC Distribution Width SD 40.5 fl (35.1-43.9); Red Blood Count 4.01 M/mm3 (4.2-5.4); White Blood Count 11.3 K/mm3 (4.4-11.0)
[2023-12-03 14:39] LABS: Protein, Urine (Random) 210.2 mg/dL (<11.9); Protein:Creat Ratio 894 mg/g CRE (0-200)
[2023-12-03 14:40] LABS: ALB/GLOB Ratio 0.8 RATIO (0.9-2.4); AST(SGOT) 21 U/L (15-37); Alanine Aminotransfer ALT/SGPT 30 U/L (13-56); Albumin, Serum 3.5 g/dL (3.2-5.0); Alkaline Phosphatase 115 U/L (45-117); Anion Gap 6 (5-15); BUN 10 mg/dL (7-18); BUN/Creat Ratio 18.4 RATIO (10-20); Calcium,Total 9.3 mg/dL (8.5-10.1); Chloride 104 mmol/L (98-107); Creatinine, Serum 0.54 mg/dL (0.55-1.02); EST Glomerular Filtration Rate 149 mL/min (>60); Est Glom Filt Rate - Afr Amer 181 mL/min (>60); Globulin 4.4 g/dL (2.2-4.2); Glucose 92 mg/dL (74-106); Potassium 3.9 mmol/L (3.5-5.1); Protein, Total 7.9 g/dL (6.4-8.2); Sodium Level 135 mmol/L (136-145)
== END | disposition home or self-care (01) ==
LOC: PAVLAB 13:42
PROVIDERS: Referring Provider Obstetrics & Gynecology; Visit Provider Obstetrics & Gynecology
DX: O14.10 Severe pre-eclampsia, unspecified trimester (principal); Z3A.00 Weeks of gestation of pregnancy not specified
CPT/HCPCS: 36415; 80053; 82570; 84156; 85025

== ENCOUNTER → 2023-12-30 | Outpatient (CLI) | payer MEDICAID, SELFPAY ==
[2023-12-30 13:16] LABS: Absolute Lymphocyte Count 1.98 X10^3/uL (0.83-4.51); Absolute Neutrophil Count 6.3 X10^3/uL (2.0-7.7); Basophil# 0.04 X10^3/uL; Basophil% 0.4 % (0-1); Eosinophil# 0.22 X10^3/uL; Eosinophils% 2.4 % (0-5); Hematocrit 32.4 % (37-47); Hemoglobin 10.2 g/dL (12.0-15.0); Lymphocyte # 1.98 X10^3/ul (0.83-4.51); Lymphocyte % 21.5 % (19-41); Mean Corp Hgb Conc 31.5 g/dL (32-36); Mean Corpuscular Hgb 24.3 pg (27.0-32.0); Mean Corpuscular Volume 77.1 fL (81-99); Mean Platelet Vol. 9.4 fl (6.2-12.0); Monocyte# 0.66 X10^3/uL; Monocyte% 7.2 % (0-10); NRBC Flagged by Analyzer 0 % (0-5); Neutrophil # 6.28 X10^3/uL (2.7-7.7); Neutrophil % 68.1 % (47-70); Platelet Count 427 K/mm3 (150-450); RBC Distribution Width CV 13.5 % (11.6-14.6); RBC Distribution Width SD 37.6 fl (35.1-43.9); White Blood Count 9.2 K/mm3 (4.4-11.0)
[2024-01-04 12:08] LABS: Anti-Cardiolipin Ab, IgG, Qn < 9 GPL U/mL (0-14); Anti-Cardiolipin Ab, IgM, Qn 10 MPL U/mL (0-12); Beta-2-Glycoprotein I IgA <9 (0-25); Beta-2-Glycoprotein I IgG <9 (0-20); Beta-2-Glycoprotein I IgM <9 (0-32); Dilute Prothrombin Time (dPT) 32.1 sec (0.0-47.6); Dilute Russell Viper Venom 36.7 sec (0.0-47.0); Interpretation Comment: (.); PTT-LA 32.7 sec (0.0-43.5); Thrombin Time 16.7 sec (0.0-23.0); dPT Confirm Ratio 0.97 Ratio (0.00-1.34)
[2024-01-04 18:47] LABS: HPV Reflexed? NOT INDICATED
== END | disposition home or self-care (01) ==
PROVIDERS: Referring Provider Nurse Practitioner Women's Health; Visit Provider Nurse Practitioner Women's Health
DX: Z12.4 Encounter for screening for malignant neoplasm of cervix (principal); N89.8 Other specified noninflammatory disorders of vagina
CPT/HCPCS: 36415; 85025; 86146; 86147; 87070; 87205; 88175; G0145

== ENCOUNTER → 2025-05-10 | Outpatient (CLI) | payer MEDICAID, SELFPAY ==
[2025-05-12 20:08] LABS: Chlamydia By Nucleic Acid AMP Negative (Negative); Gonococcus By Nucleic Acid AMP Negative (Negative)
== END | disposition home or self-care (01) ==
LOC: LABSPEC 10:38
PROVIDERS: Visit Provider Obstetrics & Gynecology
DX: N93.0 Postcoital and contact bleeding (principal)
CPT/HCPCS: 87070; 87205; 87491; 87591

== ENCOUNTER → 2025-05-25 | Outpatient (CLI) | payer MEDICAID, SELFPAY ==
--- NOTE | 2025-05-25 12:31 | US_ITS ---
PROCEDURE: PELVIC W/ TRANSVAGINAL 05/25/2025 REASON FOR EXAM: BLEEDING WITH INTERCOURSE TECHNIQUE: Procedure Code: USPELTVAG Modality: US Procedure: PELVIC W/ TRANSVAGINAL COMPARISON: None FINDINGS: The uterus measures 8.0 x 5.4 x 4.0 cm. There is no uterine fibroid or mass. The uterus is anteverted. The endometrium measures 1.0 cm. The right ovary measures 3.4 x 2.4 x 2.1 cm in the left 3.5 x 3.2 x 2.4 cm. Right ovarian volume = 8.9 cc, left = 14.3 cc. There are greater than 10 follicles visible in the left ovary. There is a 0.9 x 1.6 x 0.9 cm dominant follicle on the left ovary. There is no adnexal mass. There is a trace amount of free fluid in the right and left adnexa. There is normal color Doppler flow documented in the right and left ovary. US/Pelvic w/ Transvaginal IMPRESSION: The endometrium measures 1.0 cm. The left ovary meets the criteria for polycystic ovary syndrome. There is a trace amount of free fluid in the right and left adnexa. Reading Location: [facility]
== END | disposition home or self-care (01) ==
LOC: OPUS 11:55
PROVIDERS: Referring Provider Obstetrics & Gynecology; Visit Provider Obstetrics & Gynecology
DX: N93.0 Postcoital and contact bleeding (principal)
CPT/HCPCS: 76830; 76856